=== PATIENT | female | born 1950 | race African-American/Black ===

== ENCOUNTER 2016-12-01 22:51 | Inpatient (IN) | payer MEDICARE, OTHER ==
--- NOTE | ~2016-12-01 | CO ---
Unit #: [id number] #: [id number] Patient: JEANNE RIVAS [id number] [address] [place], [place] [address] [id number] I MR#: [id number] NAME: JEANNE RIVAS ROOM: 55 Age: 66 Sex: F Admission Date: 12/02/2016 : 1950 Attending Physician: Re Ramirez M.D. Primary Care Physician: Anand Mayo M.D. CONSULTATION REPORT REASON FOR CONSULTATION Management of end-stage renal disease. HISTORY OF PRESENT ILLNESS Ms. Rivas is a 66-year-old woman, well known to our group for longstanding end-stage renal disease. The patient reports that she was undergoing her usual dialysis on Tuesday then felt ongoing shortness of breath after dialysis prompting her to present to the emergency room here. She reports that she typically has gone to [place] for her medical care in the past, but try something different. Emergency records here indicate that abdominal pain is her presenting complaint however. During the course of her ER visit, it appears that her abdominal complaints resolved, but she was noted to have decreased oxygen saturation, prompting admission for an acute COPD exacerbation. The patient has been administered nebulizers and prednisone, and reports that her breathing has much improved over admission, although she feels this is not quite normal. We are asked to see her to address her end-stage renal disease. The patient reports that her hemodialysis tends to go uneventful. She has no significant related complaints. At a moment, she does not feel significantly short of breath and she attributes to volume issues. PAST MEDICAL HISTORY Significant for hypertension, type 2 diabetes mellitus, history of deep vein thrombosis, end-stage renal disease, on dialysis with attempted surgical procedures including multiple access attempts. She also has a history of longstanding COPD and obstructive sleep apnea, for which she has had a CPAP machine for many many years, but she reports that she has never used. PAST SURGICAL HISTORY Significant for prior laser eye surgery. She reports polypectomy approximately 5 years ago with removal of several large polyps. She reports that she has not had a followup colonoscopy. She reports that she had cholecystectomy approximately 2 years ago. She has had several surgical procedures as noted for access. ALLERGIES Sulfa and penicillin. MEDICATIONS At the time of admission include minoxidil 2.5 mg b.i.d., Coreg 25 mg b.i.d., and Prilosec 20 mg p.o. daily. I suspect this is an incomplete list especially for dialysis patient. Unit #: [id number] #: [id number] Patient: JEANNE RIVAS SOCIAL HISTORY Significant for ongoing tobacco usage. She does not use alcohol or street drugs. FAMILY HISTORY Noncontributory. REVIEW OF SYSTEMS Notable for a long decline in weight over time. The patient reports that she is really very hungry and usually eats approximately 1 meal per day. PHYSICAL EXAMINATION GENERAL: At the time of admission, she appeared quite well and loquacious. VITAL SIGNS: She was afebrile with essentially normal blood pressures, most recent being 128/55 with a pulse of 85 and respirations 20. Her O2 saturations were approximately 91% on room air at that time. HEENT: Head was normocephalic. Pupils were equal and reactive. Sclerae and conjunctivae were clear. NECK: Supple without adenopathy. There was no jugular venous distention. LUNGS: Clear to auscultation without rales, rhonchi, or wheezing. HEART: Had a regular rate with normal S1 and S2. No murmurs or gallops were noted. ABDOMEN: Obese, but soft and nontender. No masses or organomegaly were noted. No bruits were noted. EXTREMITIES: Showed no lower extremity edema. No significant joint deformities or effusions were noted. No skin lesions were noted. Her hemodialysis access in her left upper arm was an AV fistula that was mildly ectatic and will use, but appeared in good condition. DIAGNOSTIC STUDIES LABORATORY RESULTS: The last being on were notable for a sodium of 130, potassium of 3.5, and CO2 of 30. Her hemoglobin was 10.6 with a white count of 2.9 and a platelet count of 108,000. IMPRESSION 1. Abdominal pain, this may be tied into her long history of gastrointestinal issues. She has planned outpatient physician followup for this. Complaints regarding this appeared to have resolved earlier this hospitalization. She will proceed with outpatient workup as planned. 2. Chronic obstructive pulmonary disease exacerbation. Her respiratory issues appear to be resolved. Her oxygenation appeared decent. She needs to be compliant with her CPAP machine. 3. End-stage renal disease. We will get her dialyzed today as part of her routine schedule. 4. Hypertension. Her blood pressure is well controlled on her current medications. Overall, she seems well. From a renal standpoint, I have no problem discharging her anytime. Dictated by... Damon Degroot/carlos TD: 12/04/2016 05:23 JOB #: [id number] Unit #: [id number] #: [id number] Patient: JEANNE RIVAS CONSULTATION REPORT Page 1 of 1 X Flakito Flaherty Jr, MD X CONSULTATION REPORT
--- NOTE | ~2016-12-01 | DS ---
Unit #: [id number] #: [id number] Patient: JEANNE JEREZ [id number] [address] [place], [place] [address] [id number] MR#: [id number] NAME: JEANNE JEREZ ROOM: 55 Age: 66 Sex: F Admission Date: 12/02/2016 : 1950 Discharge Date: 12/04/2016 Attending Physician: Re Ramirez M.D. Primary Care Physician: Anand Mayo M.D. DISCHARGE SUMMARY PRINCIPAL DIAGNOSES 1. Abdominal pain. 2. 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 3. Bronchitis. 4. Chronic obstructive pulmonary disease. 5. Tobacco use. 6. Hyponatremia. 7. End-stage renal disease. 8. Pancytopenia. 9. Hypertension. 10. History of diabetes. 11. Obesity. 12. History of deep vein thrombosis. PROCEDURE Hemodialysis on 12/03/16. CHIP W[facility]ER Doctor, unknown, from [email or web address] Nephrology. REASON FOR HOSPITALIZATION The patient is a 66-year-old black female with a history of diabetes, obesity, deep vein thrombosis, hypertension, presented to the emergency room with abdominal pain, found to have an exacerbation of COPD as well, ongoing tobacco use, had a prior cholecystectomy. Workup in the emergency room was essentially negative, although she had a 6 cm dermoid tumor on the left adnexa and the patient was admitted. HOSPITAL COURSE She was given pain medications, started on IV steroids, p.o. antibiotics, mini nebs, Dulera. The patient underwent hemodialysis on the . Abdominal pain improved. Lactulose given for constipation. Bronchitis improved. O2 sats 92% on room air. Pancytopenia noted during this admission which appears to be chronic and stable for the patient. Chest x-ray showed no active disease. The patient refused a.m. labs this morning. She has been out smoking. She is being discharged home on: 1. Albuterol inhaler four times daily p.r.n. 2. Medrol Dosepak use as directed. 3. Z-Meek use as directed. 4. Lactulose 20 g p.o. daily p.r.n. for constipation. 5. Tessalon Perles 200 mg q.8 hours p.r.n. for cough. 6. Coreg 25 mg p.o. b.i.d. Unit #: [id number] #: [id number] Patient: JEANNE JEREZ 7. Dulera inhaler 20/5 two puffs q.12 hours. 8. Minoxidil 2.5 mg b.i.d. 9. Prescription for Percocet 5/325 mg one q.i.d. p.r.n. for pain, #12 with no refills. 10. Protonix 40 mg p.o. daily. She is to follow up with Dr. Zepeda in one week. She needs to see a fusing machine operator for the dermoid tumor. According to the fire boss's notes, she has an appointment with Dr. Griffin in one to two weeks. She has an extensive history of abdominal issues including prior polypectomy. She is on a regular diet as tolerates. She is to continue her hemodialysis on Tuesday, Tuesday and Tuesday with [facility]. Dictated by... Checo Golden M.D. RAJ/emmy TD: 12/07/2016 13:45 JOB #: [id number] DISCHARGE SUMMARY Page 1 of 1 X Checo Golden MD X DISCHARGE SUMMARY
--- NOTE | ~2016-12-01 | A ---
[facility] Nutrition Therapy DATE: 12/02/16 Patient: JEANNE JEREZ Physician: LAURYN Address: [address] [place] [address] Room/Bed: [address] [place] [address], Zip: [place] [address] Admit Date: 12/02/16 Date of : [birth year] Height: 5 7 Weight: 260 117.93 NUTRITIONAL ASSESSMENT: REASON: CONSULT RE: WEIGHT LOSS, ALSO HIGH BMI DOCUMENTATION PT IS 66 Y.O. FEMALE ADMITTED FOR COPD EXAC PMH: NO [facility]ENT [facility]. PER CHART/PAST NOTES: HTN, DM, ESRD ON HD, COPD, SEAN, HLD, GERD Anthropometrics: 5'8", WT: 260# (118 KG), BMI: 39.5, 186%IBW Labs: CREAT: 4.5, ALT: 7, NA+:130, AMYLASE: 73, LIPASE: 21, GFR: 11.1 Meds: NACL, ZOFRAN, PROTONIX, SOLU-MEDROL I/O & Bowel function: NOT AVAILABLE Skin Integrity: NO KNOWN SKIN ISSUES Estimated Nutrition Needs: INCREASED NEEDS 2' PMH (PT ON HD) + WEIGHT LOSS NOTED Assessment: CHART REVIEWED AND EVENTS NOTED. PT SEEN FOR CONSULT RE: WEIGHT LOSS. PT REPORTS DECREASED PO INTAKE 2' DECREASED APPETITE PAST SEVERAL MONTHS D/T "BEING IN AND OUT OF THE HOSPITAL". PT REPORTS A ~40# WEIGHT LOSS IN PAST 4-5 MONTHS (NOTES UBW IS ~300#). PT C/O CHRONIC DIARRHEA AND NOTES THAT SHE ONLY CONSUMES 1-[address] ENCOURAGED SMALL FREQUENT MEALS + SUPPLEMENT INTAKE, PT AGREED TO NEPRO SHAKES BID, RD TO ORDER. PT REPORTED NO DIET QUESTIONS AT THIS TIME. RD TO FOLLOW. Dx: UNINTENTIONAL WEIGHT LOSS R/T DIARRHEA, DECREASED APPETITE AEB PT REPORT ABOVE, ~40# WEIGHT LOSS IN PAST 4-5 MONTHS. Intervention: 1. REGULAR DIET 2. RD CONSULT 3. NEPRO SHAKES BID Monitoring, Evaluation and Goals: 1. ORAL INTAKE; CONSUME >50% OF MEALS AND SUPPLEMENTS W/NO C/O N/V/D 2. WEIGHTS; PROMOTE HEALTHY WEIGHT LOSS TOWARDS HEALTHY BMI 3. LABS; WNL 4. GI; PROMOTE REGULAR BOWEL FUNCTION MONITOR: -PO INTAKE/APPETITE -WEIGHTS [facility] Nutrition Therapy DATE: 12/02/16 Patient: JEANNE JEREZ Physician: LAURYN Address: [address] [place], [place] [address] Room[facility]Bed: [address] [place] [address], Zip: [place] [address] Admit Date: 12/02/16 Date of : [birth year] Height: 5 7 Weight: 260 117.93 -SUPPLEMENT INTAKE Recommendations: 1. CONSIDER CHANGING CURRENT DIET ORDER TO CC+HH TO PROMOTE GRADUAL WEIGHT LOSS TOWARDS HEALTHY BMI (19.0-25.0) OR +/-10%IBW 2. PLEASE ORDER BUTTER PECAN NEPRO SHAKES BID W/MEALS 3. ENCOURAGE SLOW GRADUAL PO INTAKE RD WILL F/U PER PROTOCOL PT IS MILD/MODERATELY COMPROMISED Respectfully, AMELIA ISLAS MS, RD, LD [employer] [facility] cc: client file
--- NOTE | ~2016-12-01 | CT4 ---
[facility] A Service of [facility] RADIOLOGY TEXT RESULTS PATIENT: JEANNE JEREZ LOCATION: [place] [address] : [birth year] UNIT #: [id number] AGE: [address]: Re Ramirez MD SEX: F ORDER DR: [id number] [place] [id number] [place], [place] [address] [id number] MR#: [id number] Acc #: [id number] NAME: JEANNE JEREZ : 1950 SEX: F STUDY DATE/TIME: 12/02/2016 0:33 UNIT: FRANCISCA ROOM: STUDY DESCRIPTION: CT Abd and Pelv Wo Cont Attending Physician: Ferny Dumont M.D. Ordering Physician: Ferny Dumont M.D. Primary Care Physician: Anand Mayo M.D. MEDICAL IMAGING REPORT This report is preliminary unless electronic signature is present EXAM CT abdomen and pelvis without contrast INDICATION Generalized abdominal pain today. PROCEDURE Unenhanced CT of the abdomen and pelvis. This CT exam was performed with one or more of the following radiation dose reduction techniques: automatic exposure control, adjustment of mA and/or kV according to patient size, and iterative reconstruction. COMPARISON 06/08/2014 FINDINGS ABDOMEN WITHOUT CONTRAST: Included lung bases clear. Cardiomegaly. Perihepatic and perisplenic fluid. No obvious liver or splenic mass on unenhanced CT. Atrophy of the kidneys with renal cysts. Adrenal glands and pancreas show no definite acute abnormality. Previous cholecystectomy. The bowel loops are nondilated. Uncomplicated colonic diverticulosis. Normal appendix. PELVIS WITHOUT CONTRAST: Small amount of fluid in the pelvis. A 6 cm left adnexal dermoid. No aggressive-appearing bone lesion. IMPRESSION 1. No definite acute findings. [facility] A Service of [facility] RADIOLOGY TEXT RESULTS PATIENT: JEANNE JEREZ LOCATION: [facility] [address] : [birth year] UNIT #: [id number] AGE: [address]: Re Ramirez MD SEX: F ORDER DR: 2. There is perihepatic and perisplenic fluid as well as a small amount of fluid in the pelvis that is new compared with the previous study. The exact etiology is not clear. 3. Renal atrophy with renal cysts. Uncomplicated colonic diverticulosis in the left adnexal dermoid. Dictated by... Stephen Diaz M.D. THIS IS AN ELECTRONICALLY VERIFIED REPORT Stephen Diaz M.D. at 12/02/2016 10:27 PM MORGAN/rc TD: 12/02/2016 02:35 JOB #: [id number] MEDICAL IMAGING REPORT Page 1 of 1 COPY
--- NOTE | ~2016-12-01 | EKG ---
PATIENT: JEANNE JEREZ UNIT #: [id number] Ventricular Rate: 72 BPM Atrial Rate: 72 BPM P-R Interval: 162 ms QRS Duration: 86 ms Q-T Interval: 382 ms QTC Calculation(Bezet): 418 ms Calculated R Amlin: 9 degrees Calculated T Amlin: 4 degrees Diagnosis Line: Normal sinus rhythm Diagnosis Line: Low voltage QRS Diagnosis Line: Cannot rule out Anteroseptal infarct , age Diagnosis Line: undetermined Diagnosis Line: Abnormal ECG Diagnosis Line: Diagnosis Line: Confirmed by ROSALES VALERO MD ([id number]) on 12/08/2016 Diagnosis Line: 2:32:58 PM INTERPRETING MD: ANJUM LEPE
--- NOTE | ~2016-12-01 | CR72 ---
[facility] A Service of [facility] RADIOLOGY TEXT RESULTS PATIENT: JEANNE JEREZ LOCATION: [place] [address] : [birth year] UNIT #: [id number] AGE: [address]: Re Ramirez MD SEX: F ORDER DR: [id number] [facility] [address] [place], [place] [address] [id number] I MR#: [id number] Acc #: [id number] NAME: JEANNE JEREZ : 1950 SEX: F STUDY DATE/TIME: 12/02/2016 1:58 UNIT: CEDOF ROOM: [id number] STUDY DESCRIPTION: CR Chest Single View Portable Attending Physician: Re Ramirez M.D. Ordering Physician: Ferny Dumont M.D. Primary Care Physician: Anand Mayo M.D. MEDICAL IMAGING REPORT This report is preliminary unless electronic signature is present EXAM Portable chest INDICATION Weakness and cough today. PROCEDURE Frontal view chest. COMPARISON 06/28/2016 FINDINGS Stable moderately large cardiomegaly. The pulmonary vessels are unchanged. Interstitial coarsening is similar. No dense consolidation, visible pleural fluid or pneumothorax. IMPRESSION No active process. No change from 06/28/2016. Dictated by... Stephen Diaz M.D. THIS IS AN ELECTRONICALLY VERIFIED REPORT Stephen Diaz M.D. at 12/02/2016 10:27 PM EED/rc TD: 12/02/2016 03:02 JOB #: [id number] MEDICAL IMAGING REPORT [facility] A Service of [facility] RADIOLOGY TEXT RESULTS PATIENT: JEANNE JEREZ LOCATION: [facility]06-06 : [birth year] UNIT #: [id number] AGE: [address]: Re Ramirez MD SEX: F ORDER DR: Page 1 of 1 COPY
--- NOTE | ~2016-12-01 | HP ---
Unit #: [id number] #: [id number] Patient: JEANNE JEREZ [id number] [place], [place] [address] [id number] I MR#: [id number] NAME: JEANNE JEREZ ROOM: 55 Age: 66 Sex: F Admission Date: 12/02/2016 : 1950 Attending Physician: Re Ramirez M.D. Primary Care Physician: Anand Mayo M.D. HISTORY AND PHYSICAL HISTORY OF PRESENT ILLNESS The patient is a 66-year-old black female with a history of hypertension, type 2 diabetes mellitus, DVT, end-stage renal disease, on hemodialysis Tuesday/Tuesday/Tuesday, COPD, and tobacco use, who presented to the emergency room with abdominal pain and nausea. No vomiting, no fever, no change in bowel habits. Prior cholecystectomy. Workup in the emergency room was essentially negative. Apparently, she was admitted for an exacerbation of COPD, although I do not see any particular workup or treatment for same except for some IV Solu-Medrol after the fact. Her room air O2 saturation was 98% in the ER. Her other vital signs were stable. She had a CT scan that showed no active disease, although she does have a left adnexal dermoid. Her amylase was slightly elevated and lipase was within normal limits, but her pain is in the left lower quadrant. No urinalysis was performed or ordered. In any case, the patient has been admitted overnight for further evaluation. Currently, she has no complaints. PAST MEDICAL HISTORY 1. Type 2 diabetes mellitus with neuropathy and nephropathy. 2. End-stage renal disease, on hemodialysis Tuesday, Tuesday, and Tuesday. 3. Gastroesophageal reflux disease. 4. Hypertension. 5. Deep vein thrombosis right upper extremity. 6. Morbid obesity. 7. Chronic obstructive pulmonary disease. PAST SURGICAL HISTORY 1. Cholecystectomy. 2. Shunt placement. 3. Laser eye surgery. 4. Polypectomy. ALLERGIES Sulfa drugs and penicillin. MEDICATIONS PRIOR TO ADMISSION 1. Minoxidil 2.5 mg b.i.d. 2. Coreg 25 mg b.i.d. 3. Prilosec 20 mg daily. SOCIAL HISTORY She smokes one pack of cigarettes daily. No alcohol or street drug use. Unit #: [id number] #: [id number] Patient: JEANNE JEREZ FAMILY HISTORY Noncontributory. PHYSICAL EXAMINATION ER VITAL SIGNS: Temperature 98.1, pulse 58, respirations 16, blood pressure 152/56, and room air O2 saturation 98%. HEENT: Unremarkable. NECK: Supple without JVD, bruits, adenopathy, or thyromegaly. CHEST: Diffusely decreased breath sounds but clear to auscultation. HEART: Regular rate and rhythm, without any murmurs, rubs or gallops. ABDOMEN: Soft, nondistended, and nontender, with positive bowel sounds and no hepatosplenomegaly. EXTREMITIES: No clubbing, cyanosis, or edema. GENITOURINARY/RECTAL: Deferred. NEUROLOGIC: Grossly intact. DIAGNOSTIC STUDIES LABORATORY: Lipase normal and amylase 73. CMP normal except for a sodium of 130, GFR 111, and creatinine 4.5. White count is 3.3, hemoglobin 9.8, and platelets are 94,000. IMAGING: Chest x-ray shows no active disease. CT scan of the pelvis shows no active disease, a small amount of ascites, renal atrophy, and a 6 cm left adnexal dermoid. IMPRESSION 1. Abdominal pain of unclear etiology, may be related to left adnexal dermoid. No Gynecology here available for consultation. 2. Exacerbation of chronic obstructive pulmonary disease. 3. Tobacco use. 4. End-stage renal disease, on hemodialysis. 5. Hyponatremia. 6. History of right upper extremity deep vein thrombosis. 7. Pancytopenia which upon review of the computer labs appears to be fairly chronic and stable. 8. Hypertension. 9. History of diabetes mellitus. 10. Obesity. PLAN Consult Renal for dialysis. Outpatient H[employer] evaluation. Quickly taper steroids as the patient seems to have very little symptoms of ongoing exacerbation of COPD. Will place her on some antibiotics. She is on DVT prophylaxis as well, as well as mini-nebs. She should be able to go home in a day or two as I do not find any significant life-threatening conditions at this time. Dictated by Checo Golden M.D. Jose TD: 12/02/2016 16:57 JOB #: [id number] Unit #: [id number] #: [id number] Patient: JEANNE JEREZ HISTORY AND PHYSICAL Page 1 of 1 X Checo Golden MD X HISTORY AND PHYSICAL
[~2016-12-01 22:51] MED LIST: ADALATCC; ADALATCC PO; ALPRAZOLAM PO; AMBIEN PO; APRESOLINE PO; ASPIRIN81 M1 PO; BENICAR PO; BENICAR20 MG PO; CARVEDILOL25 MG PO; CIPRO PO; COATED ASPIRIN325 M1 PO; COLACE PO; COREG CR 10MG10 MG PO; COREG CR10 MG; COREG CR10 MG PO; COREG PO; COUMADIN; COUMADIN PO; COUMADIN10 MG PO; CRESTOR PO; CRESTOR10 MG PO; CRESTOR5 MG PO; DIOVAN PO; DOC-Q-LACE100 MG PO; EYE DROPS; HUMALOG MIX 75/10 ML; HUMALOG MIX 75/10 ML SUBQ; HUMALOG MIX 75/23 ML; HYDROCODON-ACE1 EAC4 PO; HYDROCODON-ACE1 EAC5; HYDROCODONE-A1 UDTA2 PO; LIORESAL10 MG PO; LIPITOR; LISINOPRIL10 MG PO; LONITEN10 M1 PO; LORTAB 10/500 T1 TAB; LORTAB 10/500 T1 TAB PO; MICARDIS; MICARDIS PO; MINOXIDIL PO; MINOXIDIL10 MG; MINOXIDIL10 MG PO; MINOXIDIL2.5 MG PO; MIRALAX17 GM PO; MYLANTA400 MG PO; NEURONTIN100 MG PO; NEURONTIN600 MG PO; NEXIUM PO; NEXIUM20 MG; NICOTINE T1 PATCH .2 TOP; NORCO 10-325 TA1 TAB PO; OXYCODONE HCL10 M1 PO; PANTOPRAZOLE SO20 MG PO; PHOSLO667 MG PO; PREDNISONE PO; PRILOSEC PO; PROTONIX PO; PROTONIX20 MG PO; PROVENTIL17 GM IH; RENAGEL800 MG PO; RENAL SOFTGEL1 MG PO; RENAVITE; RENVELA800 MG PO; ROBITUSSIN100 MG/51 PO; SALINE MIST45 M1 NS; SENSIPAR30 MG PO; SENSIPAR60 MG PO; SLEEPING PILL; SOD BICARBONATE PO; TAGAMET; TOPROL XL; TOPROL XL PO; TUMS; TYLOX 5/500 CAP1 CAP PO; VALSARTAN80 MG PO; WALGREEN PHARMACY; XANAX0.5 MG PO; XANAX1 MG; ZITHROMAX PO; [UNRECOGNIZED DRUG - OTHER]
[2016-12-02 00:15] LABS: BASOPHIL% 0.7 % (0-2.5); EOSINOPHIL# 0.1 X10e3 (0-0.7); EOSINOPHIL% 2.1 % (0.0-7.0); HEMATOCRIT 31.2 % (35.0-45.0); HEMOGLOBIN 9.8 gm/dL (12.0-16.0); LYMPHOCYTE# 0.9 X10e3 (1.0-3.5); LYMPHOCYTE% 27.3 % (17.0-45.0); MEAN CELL VOLUME 83.4 FL (83-96); MEAN CORPUSCULAR HEMOGLOBIN 26.3 PG (28-34); MEAN CORPUSCULAR HGB CONC 31.6 g/dL (30-36); MEAN PLATELET VOLUME 9.7 FL (6.5-11.5); MONOCYTE# 0.5 X10e3 (0-1.0); MONOCYTE% 15.3 % (3.0-12.0); NEUTROPHIL# 1.8 X10e3 (1.5-7.1); NEUTROPHIL% 54.6 % (40-75); RED BLOOD COUNT 3.74 X10e (3.90-5.30); RED CELL DISTRIBUTION WIDTH 15.2 % (11.0-15.5); WHITE BLOOD COUNT 3.3 X10e3 (4.0-10.5)
[2016-12-02 00:35] LABS: DIFF IND YES; PLATELET COUNT 94 X10e3 (140-420)
[2016-12-02 00:37] LABS: ALBUMIN SERUM 3.8 g/dL (3.5-5.0); BILIRUBIN, DIRECT 0.1 mg/dL (0.0-0.2); BILIRUBIN,INDIRECT 0.7 mg/dL (0.0-0.9); BILIRUBIN,TOTAL 0.8 mg/dL (0.2-2.0); BUN/CREATININE RATIO 4.22; CALCIUM SERUM 9.5 mg/dL (8.4-10.2); CREATININE SERUM 4.5 mg/dL (0.6-1.4); GLOM FILT RATE Estimated 11.1 mL/min (>60); POTASSIUM 3.5 mmol/L (3.5-5.1)
[2016-12-02 00:45] LABS: PLATELET ESTIMATE DECREASED (NORMAL)
[2016-12-02 00:46] LABS: ANISOCYTOSIS SL
[2016-12-02 00:47] LABS: HYPOCHROMIA SL
[2016-12-02] MEDS ORDERED: CARVEDILOL25 MG PO (06:20)
[2016-12-02] MEDS ORDERED: MINOXIDIL2.5 MG PO (06:20)
[2016-12-02] MEDS ORDERED: PRILOSEC PO (06:21)
[2016-12-03 06:44] LABS: HEMATOCRIT 34.1 % (35.0-45.0); HEMOGLOBIN 10.6 gm/dL (12.0-16.0); MEAN CELL VOLUME 84.6 FL (83-96); MEAN CORPUSCULAR HEMOGLOBIN 26.2 PG (28-34); MEAN PLATELET VOLUME 9.8 FL (6.5-11.5); RED BLOOD COUNT 4.03 X10e (3.90-5.30); RED CELL DISTRIBUTION WIDTH 15.8 % (11.0-15.5); WHITE BLOOD COUNT 2.9 X10e3 (4.0-10.5)
[2016-12-03 09:21] LABS: CALCIUM SERUM 9.6 mg/dL (8.4-10.2); CREATININE SERUM 6.2 mg/dL (0.6-1.4); GLOM FILT RATE Estimated 7.5 mL/min (>60); POTASSIUM 4.6 mmol/L (3.5-5.1)
[2016-12-04 08:11] LABS: HEMOGLOBIN 9.8 gm/dL (12.0-16.0); MEAN CELL VOLUME 83.5 FL (83-96); MEAN CORPUSCULAR HEMOGLOBIN 26.3 PG (28-34); MEAN CORPUSCULAR HGB CONC 31.5 g/dL (30-36); MEAN PLATELET VOLUME 9.5 FL (6.5-11.5); RED BLOOD COUNT 3.71 X10e (3.90-5.30); RED CELL DISTRIBUTION WIDTH 15.5 % (11.0-15.5); WHITE BLOOD COUNT 3.4 X10e3 (4.0-10.5)
[2016-12-04] MEDS ORDERED: AZITHROMYCIN250 MG PO (08:36)
[2016-12-04] MEDS ORDERED: MEDROL DOSEPAK4 MG PO (08:37)
[2016-12-04] MEDS ORDERED: TESSALON PERLE100 M1 PO (08:40)
[2016-12-04] MEDS ORDERED: LACTULOSE10 GM/15 M PO (08:41)
[2016-12-04] MEDS ORDERED: PROTONIX PO (08:42)
[2016-12-04] MEDS ORDERED: PERCOCET 5/321 UDTAB PO (08:44)
[2017-02-26] MEDS ORDERED: ALBUTEROL2.5 MG/3 M INH (22:15)
[2017-02-26] MEDS ORDERED: CARVEDILOL25 M1 PO (22:16)
[2017-02-26] MEDS ORDERED: FAMOTIDINE20 M1 PO (22:17)
[2017-02-26] MEDS ORDERED: IBUPROFEN IB200 M1 PO (22:19)
[2017-02-26] MEDS ORDERED: LACTULOSE10 GM/15 M PO (22:21)
[2017-02-26] MEDS ORDERED: MINOXIDIL2.5 MG PO (22:22)
[2017-02-26] MEDS ORDERED: PERCOCET5/325 PO (22:24)
[2017-02-26] MEDS ORDERED: PANTOPRAZOLE SO40 MG PO (22:25)
[2017-02-26] MEDS ORDERED: PROMETHAZINE12.5 MG PO (22:26)
[2017-02-26] MEDS ORDERED: STOOL SOFTENER100 M1 PO (22:27)
[2017-02-26] MEDS ORDERED: VALSARTAN160 MG PO (22:28)
== END 2016-12-04 09:30 | disposition home or self-care (01) | DRG 190 ==
LOC: CED 22:51 → CEDOF 12-02 02:00 → C5B 12-02 02:47 → CEDOF 12-02 02:47 → CED 12-02 02:47 → C5B 12-02 08:06 → CEDOF 12-02 08:06 → C5B 12-04 09:30
PROVIDERS: Emergency Medicine; Internal Medicine
DX: J44.1 Chronic obstructive pulmonary disease with (acute) exacerbation (principal); N18.6 End stage renal disease; D61.818 Other pancytopenia; E11.21 Type 2 diabetes mellitus with diabetic nephropathy; I12.0 Hypertensive chronic kidney disease with stage 5 chronic kidney disease or end stage renal disease; E87.1 Hypo-osmolality and hyponatremia; Z68.41 Body mass index [BMI] 40.0-44.9, adult; R10.9 Unspecified abdominal pain; E11.40 Type 2 diabetes mellitus with diabetic neuropathy, unspecified; Z79.84 Long term (current) use of oral hypoglycemic drugs; Z99.2 Dependence on renal dialysis; Z72.0 Tobacco use; K21.9 Gastro-esophageal reflux disease without esophagitis; E66.01 Morbid (severe) obesity due to excess calories; Z90.49 Acquired absence of other specified parts of digestive tract; Z88.2 Allergy status to sulfonamides; Z88.0 Allergy status to penicillin; Z86.718 Personal history of other venous thrombosis and embolism; G47.33 Obstructive sleep apnea (adult) (pediatric); D28.7 Benign neoplasm of other specified female genital organs
CPT/HCPCS: 36415; 71010; 74176; 80048; 80076; 82150; 83690; 83735; 85025; 85027; 93005; 94640; 94760; 96374; 96375; 99285; C9113; J1170; J1644; J1650; J2270; J2405; J2920; J2930